=== PATIENT | female | born 1960 | race Caucasian/White ===

== ENCOUNTER → 2016-11-02 | Outpatient (CLI) | payer BC ==
[~2016-11-02] MED LIST: AMBIEN5 MG PO; ATIVAN0.5 MG PO; B-COMPLEX-VITA1 EACH PO; BIOTIN300 MCG PO; CATAPRES0.1 MG PO; CLARITIN5 MG PO; EXCEDRIN MIGRA1 EAC3 PO; FLONASE ALLERG9.9 ML BOTH NARES; GLUCOSAMINE &1 EAC1 PO; LAMICTAL150 M1 PO; LATUDA40 MG PO; MINIVELLE1 EACH TD; MOTRIN400 MG PO; PRILOSEC20 MG PO; PROGESTERONE100 MG PO; TRILEPTAL300 MG PO; TRILEPTAL600 MG PO; VITAMIN B122500 MCG PO; VITAMIN D31000 UNIT PO
== END | disposition home or self-care (01) ==
LOC: CDC 09:17
DX: Z01.810 Encounter for preprocedural cardiovascular examination (principal)
CPT/HCPCS: 93000

== ENCOUNTER 2016-11-08 10:42 | Day surgery (SDC) | payer BC ==
[~2016-11-08] VITALS: Ht 162.6 cm; Wt 90.0 kg
[2016-11-08] MEDS ORDERED: TYLENOL REGULA325 MG PO (11:27)
[2016-11-08] MEDS ORDERED: CYTOTEC200 MCG PO (11:29)
[2016-11-08 11:33] VITALS: BP 133/84
[2016-11-08 16:35] VITALS: BP 139/75
[2016-11-08 17:18] VITALS: BP 147/75
== END 2016-11-08 17:20 | disposition home or self-care (01) ==
LOC: SDC 10:42
PROC: 0U7C7ZZ Dilation of Cervix, Via Natural or Artificial Opening (ICD-10-PCS; principal; 2016-11-08)
DX: N93.8 Other specified abnormal uterine and vaginal bleeding (principal); Z79.890 Hormone replacement therapy; F41.9 Anxiety disorder, unspecified; R03.0 Elevated blood-pressure reading, without diagnosis of hypertension; E66.9 Obesity, unspecified; K21.9 Gastro-esophageal reflux disease without esophagitis; Z68.33 Body mass index [BMI] 33.0-33.9, adult; Z87.891 Personal history of nicotine dependence; Z82.49 Family history of ischemic heart disease and other diseases of the circulatory system; Z83.49 Family history of other endocrine, nutritional and metabolic diseases; Z80.0 Family history of malignant neoplasm of digestive organs; Z88.2 Allergy status to sulfonamides
CPT/HCPCS: J0330; J1100; J1170; J1885; J2405; J3010

== ENCOUNTER 2017-02-21 18:25 | Emergency (ER) | payer OTHER ==
[~2017-02-21] VITALS: Ht 165.1 cm; Wt 93.8 kg
[~2017-02-21 18:25] MED LIST changes: +CYTOTEC200 MCG PO; +TYLENOL REGULA325 MG PO
[2017-02-21 19:25] LABS: HEMATOCRIT 43.7 % (36.0-46.0); MCH 31.3 PG (29.0-34.0); MCHC 34.8 G/DL (30.0-36.0); MCV 90.1 FL (83-99); MEAN PLAT.VOLUME 8.2 uM^3 (9.5-12.4); PLATELET COUNT 259 K/uL (156-360); RBC DIS.WIDTH-CV 11.8 % (11.8-14.6); RED BLOOD COUNT 4.85 M/uL (3.80-5.20); WHITE BLOOD COUNT 7.4 K/uL (4.1-10.2)
[2017-02-21 19:34] LABS: CHLORIDE 107 mEq/L (99-109); POTASSIUM 3.7 mEq/L (3.7-5.4); SODIUM 142 mEq/L (136-147)
[2017-02-21 19:35] LABS: GLUCOSE 109 mg/dL (70-99)
[2017-02-21 19:37] LABS: ANION GAP 9 MEQ/L (2-14)
[2017-02-21 19:39] LABS: GFR ESTIMATE (CALCULATED) > 59 mL/min/
[2017-02-21 19:40] LABS: UREA NITROGEN (BUN) 10 mg/dL (9-23)
[2017-02-21 19:45] LABS: TROP-I INTERPRETATION NEGATIVE; TROPONIN-I < 0.01 ng/mL (0.0-0.30)
[2017-02-21 22:41] LABS: TROP-I INTERPRETATION NEGATIVE; TROPONIN-I < 0.01 ng/mL (0.0-0.30)
[2017-02-21 23:07] VITALS: BP 140/78
== END 2017-02-21 23:08 | disposition home or self-care (01) ==
LOC: EME 18:25 → RME 18:25
PROVIDERS: Physician Assistant
DX: R07.89 Other chest pain (principal); R42 Dizziness and giddiness; K21.9 Gastro-esophageal reflux disease without esophagitis; G43.909 Migraine, unspecified, not intractable, without status migrainosus; F32.9 Major depressive disorder, single episode, unspecified; F31.9 Bipolar disorder, unspecified; Z87.891 Personal history of nicotine dependence
CPT/HCPCS: 71020; 80048; 84484; 85027; 93005; 99281; 99284